=== PATIENT | female | born 2000 | race Asian ===

== ENCOUNTER 2022-08-11 16:19 | Observation (INO) ==
--- NOTE | 2022-08-11 16:22 | Emergency Department Note ---
Impression & Plan Intentional acetaminophen overdose, Major depressive disorder, Hypokalemia, Suicide attempt by acetaminophen overdose, Alcohol use ED Provider Note NAME: REMY WESTBROOK AGE: 21 SEX: F : 2000 ARRIVES VIA: Ambulance INFORMANT: Patient, ED PROVIDER(S): Jason Solomon MD CHIEF COMPLAINT: Tylenol overdose MEDICAL DECISION MAKING: Patient presents due to concern for Tylenol overdose that occurred around 11 AM this morning. Blood work was obtained and IV was established and empiric Acetadote was ordered. I did speak with poison control who agreed with current plan of care. Patient is a normal white count H&H and platelet count. Kidney function unremarkable but does have hypokalemia. Patient's urinalysis negative. test negative. Tylenol level 177 with alcohol 101. Given the patient's elevated Tylenol patient is not medically cleared. I did speak the on-call hospitalist service, Ilsa Morataya PA-C the patient was admitted by Dr. Zapien. Critical Care: I have personally spent 47 minutes of critical care time in direct management of this patient. This includes bedside care, interpretation of diagnostic studies, and testing, discussion with consultants, patient, and family members, and other require inpatient management activities. This 47 minutes is in excess of all separately billable procedures. Prior /Outside records reviewed: none Differential diagnosis: Overdose, mood disorder, infection, hypoglycemia, electrolyte abnormalities, cardiac sources, intracerebral event, toxicologic, trauma, neurologic, as well as other pathologies. Diagnostics, as interpreted by me: ECG: Normal sinus rhythm, rate of 64, normal intervals normal axis no ST elevations. Cardiac monitoring: An order was placed for continuous cardiac monitoring. The monitor shows a rate of 67 with sinus rhythm. Patient was placed on pulse oximetry Medical decision rules: none Imaging studies: See below HPI: Patient presents due to concern for Tylenol overdose. The patient states that she woke up this morning around 11 and took 3500 mg tablets of Tylenol. The patient does admit to drinking Esvin's vodka. The patient does have a known history of depression. Patient is a [employer] student but is currently here over the summer. Her roommates are currently gone. Patient does feel safe at home. No access to guns or weapons. The patient does have a prior history of self-harm and suicide attempt via cutting when she was 19. Patient's last menstrual period was 2 weeks ago. Patient does complain of depressed mood and that the ingestion was an attempt to harm herself. No HI or AVH. Patient states that her sleep has not been great and her appetite has been poor. Patient does complain of mild nausea. Patient denies any tobacco or drug use. Patient denies taking anything that she was not to otherwise. PAST MEDICAL HISTORY: See Below PAST SURGICAL HISTORY: See Below SOCIAL HISTORY: See Below HOME MEDICATIONS: See Below ALLERGIES: See Below VITALS: See Below PHYSICAL EXAMINATION: GENERAL: Depressed mood, no apparent distress EYE EXAM: Normal conjunctiva. PERRL, no anisocoria and EOM's grossly intact w/o pain. NECK: Supple, no nuchal rigidity, no adenopathy, non-tender. No signs of meningismus. FROM of the neck with good chin to chest and neck extension. No str idor. LUNGS: Clear to auscultation. Normal chest wall mechanics. HEART: NSR, no MRG. ABDOMEN: Abdomen soft, non-tender, no masses, no rebound or guarding. BACK: No CVA TTP. SKIN: No rashes and no bruising. UPPER EXTREMITIES: Upper extremities are grossly normal. LOWER EXTREMITIES: Grossly normal, no edema. NEURO EXAM: A&O x3, cranial nerves II-XII grossly intact, normal speech, moves all 4 extremities. Psych: Positive SI, negative HI or AVH. Past Med/Surg History Medical History Allergic rhinitis Major depressive disorder Surgical History No pertinent past surgical history Social History Smoking Status: Never smoker Hx Alcohol Use: Yes Hx Substance Use: No Preferred Language: Yakut current occupational status: student current occupation: [employer] student Results & Data (ED) Vital Signs Vital Signs - 24 hr 08/11/22 16:37 08/11/22 16:37 08/11/22 18:24 Temperature 36.7 C Temperature Source Oral Pulse Rate 73 Pulse Rate [Finger] 55 L Respiratory Rate 14 14 Blood Pressure 115/76 Blood Pressure [Left Arm] 109/77 Blood Pressure Mean 89 Blood Pressure Mean [Left Arm] 87 Pulse Oximetry 97 100 Oxygen Delivery Method Room Air Room Air Room Air Sepsis Recent Fever Within 48 Hours No Sepsis New/Unexplained Change in Mental Status No Sepsis Action Taken by Nursing No Action Required Home Medications Current Medication List: was personally reviewed by me Laboratory Data Attestation: I reviewed the patient's lab results. 08/11/22 16:42 08/11/22 16:42 Lab Results 08/11/22 08/11/22 08/11/22 Range/Units 16:28 16:28 16:28 WBC (4.8-10.8) K/ul RBC (4.20-5.40) M/uL Hgb (12.0-16.0) g/dl Hct (37.0-47.0) % MCV (80.0-100.0) fL MCH (25.0-34.0) pg MCHC (32.0-36.0) g/dL RDW Std Deviation (36.4-46.3) fL RDW Coeff of Pedro (11.5-14.5) % Plt Count (130-400) K/uL MPV (9.4-12.4) fL Immature Gran % (Auto) % Neut % (Auto) % Lymph % (Auto) % [place] % (Auto) % Eos % (Auto) % Baso % (Auto) % Neut # (Auto) (1.40-6.50) K/uL Lymph # (Auto) (1.2-3.4) K/uL [place] # (Auto) (0.11-0.59) K/uL Eos # (Auto) (0-0.50) K/uL Baso # (Auto) (0-0.2) K/uL Immature Gran # (Auto) (0.01-0.20) K/uL PT (9.0-12.0) Seconds INR (0.9-1.1) APTT (21.0-31.0) Seconds PTT Ratio Sodium (136-145) mmol/L Potassium (3.5-5.1) mmol/L Chloride (98-107) mmol/L Carbon Dioxide (21-32) mmol/L Anion Gap (3-11) BUN (6-23) mg/dl Creatinine (0.6-1.2) mg/dl Est Cr Clr Drug Dosing Est GFR ( Amer) ml/min Est GFR (Non-Af Amer) ml/min BUN/Creatinine Ratio (10-20) Glucose (70-99(Fasting)) mg/dl Calcium (8.6-10.3) mg/dl Total Bilirubin (0.2-1.0) mg/dl AST (13-39) U/L ALT (7-52) U/L Alkaline Phosphatase (34-104) U/L Total Protein (6.0-8.3) gm/dl Albumin (3.4-5.0) gm/dl Globulin (2.5-4.0) gm/dl Albumin/Globulin Ratio (0.9-2) TSH (0.300-4.500) uIu/ml Urine Color Yellow Urine Appearance Clear (Clear) Urine pH 7.0 (4.5-7.5) Ur Specific [place] 1.006 (1.000-1.030) Urine Protein Negative (Negative) Urine Glucose (UA) Negative (Negative) Urine Ketones Negative (Negative) Urine Blood Negative (Negative) Urine Nitrite Negative (Negative) Urine Bilirubin Negative (Negative) Urine Urobilinogen Negative (Negative) Ur Leukocyte Esterase Negative (Negative) Urine Test Negative (Negative) Salicylates (3.0-30) mg/dl Urine Opiates Screen Neg (Neg) Ur Methadone, Qual Neg (Neg) Acetaminophen (10-30) ug/ml Urine Barbiturates Neg (Neg) Ur Phencyclidine (PCP) Neg (Neg) U Amphetamin/Meth Scrn Neg (Neg) MDMA (Ecstasy) Screen Neg (Neg) U Benzodiazepines Scrn Neg (Neg) Ur Cocaine Metabolite Neg (Neg) U Marijuana (THC) Screen Neg (Neg) Ethyl Alcohol mg/dL (<10.0) mg/dl SARS-CoV-2, RNA, NAAT (NEGATIVE) 08/11/22 08/11/22 08/11/22 Range/Units 16:42 16:42 16:42 WBC 10.33 (4.8-10.8) K/ul RBC 4.79 (4.20-5.40) M/uL Hgb 14.0 (12.0-16.0) g/dl Hct 40.3 (37.0-47.0) % MCV 84.1 (80.0-100.0) fL MCH 29.2 (25.0-34.0) pg MCHC 34.7 (32.0-36.0) g/dL RDW Std Deviation 38.3 (36.4-46.3) fL RDW Coeff of Pedro 12.5 (11.5-14.5) % Plt Count 207 (130-400) K/uL MPV 11.4 (9.4-12.4) fL Immature Gran % (Auto) 0.5 % Neut % (Auto) 68.3 % Lymph % (Auto) 20.6 % [place] % (Auto) 6.6 % Eos % (Auto) 3.3 % Baso % (Auto) 0.7 % Neut # (Auto) 7.06 H (1.40-6.50) K/uL Lymph # (Auto) 2.13 (1.2-3.4) K/uL [place] # (Auto) 0.68 H (0.11-0.59) K/uL Eos # (Auto) 0.34 (0-0.50) K/uL Baso # (Auto) 0.07 (0-0.2) K/uL Immature Gran # (Auto) 0.05 (0.01-0.20) K/uL PT (9.0-12.0) Seconds INR (0.9-1.1) APTT (21.0-31.0) Seconds PTT Ratio Sodium 142 (136-145) mmol/L Potassium 3.4 L (3.5-5.1) mmol/L Chloride 110 H (98-107) mmol/L Carbon Dioxide 20 L (21-32) mmol/L Anion Gap 12 H (3-11) BUN 10 (6-23) mg/dl Creatinine 0.51 L (0.6-1.2) mg/dl Est Cr Clr Drug Dosing Not Reportable Est GFR ( Amer) > 150.0 ml/min Est GFR (Non-Af Amer) 137.5 ml/min BUN/Creatinine Ratio 19.6 (10-20) Glucose 101 H (70-99(Fasting)) mg/dl Calcium 9.0 (8.6-10.3) mg/dl Total Bilirubin 0.6 (0.2-1.0) mg/dl AST 21 (13-39) U/L ALT 14 (7-52) U/L Alkaline Phosphatase 68 (34-104) U/L Total Protein 7.4 (6.0-8.3) gm/dl Albumin 4.0 (3.4-5.0) gm/dl Globulin 3.4 (2.5-4.0) gm/dl Albumin/Globulin Ratio 1.2 (0.9-2) TSH 0.634 (0.300-4.500) uIu/ml Urine Color Urine Appearance (Clear) Urine pH (4.5-7.5) Ur Specific [place] (1.000-1.030) Urine Protein (Negative) Urine Glucose (UA) (Negative) Urine Ketones (Negative) Urine Blood (Negative) Urine Nitrite (Negative) Urine Bilirubin (Negative) Urine Urobilinogen (Negative) Ur Leukocyte Esterase (Negative) Urine Test (Negative) Salicylates (3.0-30) mg/dl Urine Opiates Screen (Neg) Ur Methadone, Qual (Neg) Acetaminophen (10-30) ug/ml Urine Barbiturates (Neg) Ur Phencyclidine (PCP) (Neg) U Amphetamin/Meth Scrn (Neg) MDMA (Ecstasy) Screen (Neg) U Benzodiazepines Scrn (Neg) Ur Cocaine Metabolite (Neg) U Marijuana (THC) Screen (Neg) Ethyl Alcohol mg/dL (<10.0) mg/dl SARS-CoV-2, RNA, NAAT (NEGATIVE) 08/11/22 08/11/22 08/11/22 Range/Units 16:42 16:42 16:42 WBC (4.8-10.8) K/ul RBC (4.20-5.40) M/uL Hgb (12.0-16.0) g/dl Hct (37.0-47.0) % MCV (80.0-100.0) fL MCH (25.0-34.0) pg MCHC (32.0-36.0) g/dL RDW Std Deviation (36.4-46.3) fL RDW Coeff of Pedro (11.5-14.5) % Plt Count (130-400) K/uL MPV (9.4-12.4) fL Immature Gran % (Auto) % Neut % (Auto) % Lymph % (Auto) % [place] % (Auto) % Eos % (Auto) % Baso % (Auto) % Neut # (Auto) (1.40-6.50) K/uL Lymph # (Auto) (1.2-3.4) K/uL [place] # (Auto) (0.11-0.59) K/uL Eos # (Auto) (0-0.50) K/uL Baso # (Auto) (0-0.2) K/uL Immature Gran # (Auto) (0.01-0.20) K/uL PT 11.7 (9.0-12.0) Seconds INR 1.1 (0.9-1.1) APTT 30.5 (21.0-31.0) Seconds PTT Ratio 1.1 Sodium (136-145) mmol/L Potassium (3.5-5.1) mmol/L Chloride (98-107) mmol/L Carbon Dioxide (21-32) mmol/L Anion Gap (3-11) BUN (6-23) mg/dl Creatinine (0.6-1.2) mg/dl Est Cr Clr Drug Dosing Est GFR ( Amer) ml/min Est GFR (Non-Af Amer) ml/min BUN/Creatinine Ratio (10-20) Glucose (70-99(Fasting)) mg/dl Calcium (8.6-10.3) mg/dl Total Bilirubin (0.2-1.0) mg/dl AST (13-39) U/L ALT (7-52) U/L Alkaline Phosphatase (34-104) U/L Total Protein (6.0-8.3) gm/dl Albumin (3.4-5.0) gm/dl Globulin (2.5-4.0) gm/dl Albumin/Globulin Ratio (0.9-2) TSH (0.300-4.500) uIu/ml Urine Color Urine Appearance (Clear) Urine pH (4.5-7.5) Ur Specific [place] (1.000-1.030) Urine Protein (Negative) Urine Glucose (UA) (Negative) Urine Ketones (Negative) Urine Blood (Negative) Urine Nitrite (Negative) Urine Bilirubin (Negative) Urine Urobilinogen (Negative) Ur Leukocyte Esterase (Negative) Urine Test (Negative) Salicylates < 3.0 L (3.0-30) mg/dl Urine Opiates Screen (Neg) Ur Methadone, Qual (Neg) Acetaminophen 177 H* (10-30) ug/ml Urine Barbiturates (Neg) Ur Phencyclidine (PCP) (Neg) U Amphetamin/Meth Scrn (Neg) MDMA (Ecstasy) Screen (Neg) U Benzodiazepines Scrn (Neg) Ur Cocaine Metabolite (Neg) U Marijuana (THC) Screen (Neg) Ethyl Alcohol mg/dL 101.7 H (<10.0) mg/dl SARS-CoV-2, RNA, NAAT (NEGATIVE) 08/11/22 Range/Units 17:46 WBC (4.8-10.8) K/ul RBC (4.20-5.40) M/uL Hgb (12.0-16.0) g/dl Hct (37.0-47.0) % MCV (80.0-100.0) fL MCH (25.0-34.0) pg MCHC (32.0-36.0) g/dL RDW Std Deviation (36.4-46.3) fL RDW Coeff of Pedro (11.5-14.5) % Plt Count (130-400) K/uL MPV (9.4-12.4) fL Immature Gran % (Auto) % Neut % (Auto) % Lymph % (Auto) % [place] % (Auto) % Eos % (Auto) % Baso % (Auto) % Neut # (Auto) (1.40-6.50) K/uL Lymph # (Auto) (1.2-3.4) K/uL [place] # (Auto) (0.11-0.59) K/uL Eos # (Auto) (0-0.50) K/uL Baso # (Auto) (0-0.2) K/uL Immature Gran # (Auto) (0.01-0.20) K/uL PT (9.0-12.0) Seconds INR (0.9-1.1) APTT (21.0-31.0) Seconds PTT Ratio Sodium (136-145) mmol/L Potassium (3.5-5.1) mmol/L Chloride (98-107) mmol/L Carbon Dioxide (21-32) mmol/L Anion Gap (3-11) BUN (6-23) mg/dl Creatinine (0.6-1.2) mg/dl Est Cr Clr Drug Dosing Est GFR ( Amer) ml/min Est GFR (Non-Af Amer) ml/min BUN/Creatinine Ratio (10-20) Glucose (70-99(Fasting)) mg/dl Calcium (8.6-10.3) mg/dl Total Bilirubin (0.2-1.0) mg/dl AST (13-39) U/L ALT (7-52) U/L Alkaline Phosphatase (34-104) U/L Total Protein (6.0-8.3) gm/dl Albumin (3.4-5.0) gm/dl Globulin (2.5-4.0) gm/dl Albumin/Globulin Ratio (0.9-2) TSH (0.300-4.500) uIu/ml Urine Color Urine Appearance (Clear) Urine pH (4.5-7.5) Ur Specific [place] (1.000-1.030) Urine Protein (Negative) Urine Glucose (UA) (Negative) Urine Ketones (Negative) Urine Blood (Negative) Urine Nitrite (Negative) Urine Bilirubin (Negative) Urine Urobilinogen (Negative) Ur Leukocyte Esterase (Negative) Urine Test (Negative) Salicylates (3.0-30) mg/dl Urine Opiates Screen (Neg) Ur Methadone, Qual (Neg) Acetaminophen (10-30) ug/ml Urine Barbiturates (Neg) Ur Phencyclidine (PCP) (Neg) U Amphetamin/Meth Scrn (Neg) MDMA (Ecstasy) Screen (Neg) U Benzodiazepines Scrn (Neg) Ur Cocaine Metabolite (Neg) U Marijuana (THC) Screen (Neg) Ethyl Alcohol mg/dL (<10.0) mg/dl SARS-CoV-2, RNA, NAAT NEGATIVE (NEGATIVE) Administered Medications Discontinued Medications Acetylcysteine 8,390 mg/ (Dextrose) 241.95 mls @ 200 mls/hr IV ONCE ONE; Protocol Stop: 08/11/22 18:13 Last Infusion: 08/11/22 18:51 Dose: 0 mls/hr Documented By: Admin: 08/11/22 17:38 Dose: 200 mls/hr Documented By: ANGIE Sodium Chloride (Nss 1000ml) 1,000 mls @ 999 mls/hr IV .Q1H1M ONE Stop: 08/11/22 19:11 Last Admin: 08/11/22 18:17 Dose: 999 mls/hr Documented By: ANGIE Ondansetron HCl (Ondansetron Inj 2 Mg/Ml 2 Ml Vial) 4 mg IV NOW STA Stop: 08/11/22 18:10 Last Admin: 08/11/22 18:16 Dose: 4 mg Documented By: ANGIE Ondansetron HCl (Ondansetron Inj 2 Mg/Ml 2 Ml Vial) Confirm Administered Dose 4 mg .ROUTE .STK-MED ONE Stop: 08/11/22 18:11 Last Admin: 08/11/22 18:16 Dose: Not Given Documented By: ANGIE Discharge Plan Visit Data Chief Complaint: Overdose (Intentional) Stated Complaint: OVERDOSE ED Provider: Jason Solomon Discharge Problem: Intentional acetaminophen overdose, Major depressive disorder, Hypokalemia, Suicide attempt by acetaminophen overdose, Alcohol use Patient Disposition: Admitted As Inpatient Discharge Instructions Interventions: ED Discharge Assessment Last Done: 08/11/22 19:10 Intentional acetaminophen overdose Qualifiers: Encounter type: initial encounter Qualified Code(s): T39.1X2A - Poisoning by 4- Aminophenol derivatives, intentional self-harm, initial encounter Major depressive disorder Qualifiers: Major depression recurrence: recurrent Major depression episode severity: severe Suicide attempt by acetaminophen overdose Qualifiers: Encounter type: initial encounter Qualified Code(s): T39.1X2A - Poisoning by 4- Aminophenol derivatives, intentional self-harm, initial encounter
[2022-08-11] MEDS ORDERED: ACETYLCYSTEINE IV ONE ×2 (17:01→23:06)
[2022-08-11] MEDS ORDERED: DEXTROSE 5% IV ONE ×2 (17:01→23:06)
[2022-08-11 17:02] LABS: Appearance Urine Clear (Clear); Bilirubin Urine Negative (Negative); Blood Urine Negative (Negative); Color Urine Yellow; Glucose Urine UA Negative (Negative); Ketones Urine Negative (Negative); Leukocyte Esterase Urine Negative (Negative); Nitrite Urine Negative (Negative); Pregnancy Test, Urine Negative (Negative); Protein Urine Negative (Negative); Specific Gravity Urine 1.006 (1.000-1.030); Urobilinogen Urine Negative (Negative)
[2022-08-11 17:04] LABS: Basophils # (auto) 0.07 K/uL (0-0.2); Basophils % (auto) 0.7 %; Eosinophils # (auto) 0.34 K/uL (0-0.50); Eosinophils % (auto) 3.3 %; Hematocrit (blood only) 40.3 % (37.0-47.0); Immature Granulocytes # (auto) 0.05 K/uL (0.01-0.20); Immature Granulocytes % (auto) 0.5 %; Lymphocytes # (auto) 2.13 K/uL (1.2-3.4); Lymphocytes % (auto) 20.6 %; Mean Corpuscular Hemoglobin 29.2 pg (25.0-34.0); Mean Corpuscular Hgb Conc 34.7 g/dL (32.0-36.0); Mean Corpuscular Volume 84.1 fL (80.0-100.0); Mean Platelet Volume 11.4 fL (9.4-12.4); Monocytes # (auto) 0.68 K/uL (0.11-0.59); Monocytes % (auto) 6.6 %; Neutrophils # (auto) 7.06 K/uL (1.40-6.50); Neutrophils % (auto) 68.3 %; Platelet Count 207 K/uL (130-400); RDW Coefficient of Variation 12.5 % (11.5-14.5); RDW Standard Deviation 38.3 fL (36.4-46.3); Red Blood Count 4.79 M/uL (4.20-5.40); White Blood Count 10.33 K/ul (4.8-10.8)
[2022-08-11 17:31] LABS: Anion Gap 12 (3-11); Bilirubin,Total 0.6 mg/dl (0.2-1.0); Carbon Dioxide 20 mmol/L (21-32); Chloride 110 mmol/L (98-107); Potassium 3.4 mmol/L (3.5-5.1); Sodium 142 mmol/L (136-145)
[2022-08-11 17:37] LABS: Alanine Aminotransferase 14 U/L (7-52); Albumin Globulin Ratio 1.2 (0.9-2); Alkaline Phosphatase 68 U/L (34-104); Aspartate Aminotransferase 21 U/L (13-39); BUN Creatinine Ratio 19.6 (10-20); Blood Urea Nitrogen 10 mg/dl (6-23); Est GFR (African American) > 150.0 ml/min; Est GFR (Non-African American) 137.5 ml/min; Globulin 3.4 gm/dl (2.5-4.0); Glucose 101 mg/dl (70-99(Fasting)); Total Protein 7.4 gm/dl (6.0-8.3)
[2022-08-11 17:39] LABS: Amphetamines+Metham, Urine Neg (Neg); Barbiturates, Urine Neg (Neg); Benzodiazepine, Urine Neg (Neg); Cocaine, Urine Neg (Neg); MDMA (Ecstacy), Urine Neg (Neg); Methadone, Urine Neg (Neg); Opiate, Urine Neg (Neg); Phencyclidine, Urine Neg (Neg)
[2022-08-11 17:48] LABS: INR 1.1 (0.9-1.1); Partial Thromboplastin Ratio 1.1; Partial Thromboplastin Time 30.5 Seconds (21.0-31.0); Prothrombin Time 11.7 Seconds (9.0-12.0)
[2022-08-11 17:49] LABS: Acetaminophen 177 ug/ml (10-30); Salicylate < 3.0 mg/dl (3.0-30)
[2022-08-11] MEDS ORDERED: ONDANSETRON INJ 2 MG/ML 2 ML VIAL IV STA (18:09)
[2022-08-11] MEDS ORDERED: ONDANSETRON INJ 2 MG/ML 2 ML VIAL ONE (18:10)
[2022-08-11] MEDS ORDERED: SODIUM CHLORIDE 0.9% 1000ML 1,000 ML IV ONE (18:11)
[2022-08-11] MEDS ORDERED: POTASSIUM CHLORIDE CRTAB 20 MEQ TABCR PO STA (18:55)
[2022-08-11] MEDS ORDERED: ONDANSETRON INJ 2 MG/ML 2 ML VIAL IV PRN (18:55)
--- NOTE | 2022-08-11 19:02 | History & Physical Report ---
Date of Service August 11, 2022 Assessment & Plan (1) Intentional acetaminophen overdose: Plan: Acute/unstable with active n/v - HIGH risk - Obs to pcu - Regular diet, safe tray - Reviewed CMP, AST/ALT reviewed and within normal limits - Acetadote bolus given by ED, d/w poison control, will initiate 4 hr bag (2.8g) followed by 16 hr bag (5.6g) - Repeat labs (specifically LFTs and PT/INR) 12 hrs into 16 hr bag = 11 AM on 08/12 - Zofran PRN n/v, despite dose in ED, still vomiting, will order a dose of Compazine 10mg IV x1 now - Continue IVF - 1:1/suicide precautions - Consult psychiatry, appreciate assistance (2) Major depressive disorder: Plan: Acute on chronic/unstable - Currently rx'd Lexapro 20mg daily which she is compliant with - Does not feel that this is effectively treating her depression and does not have access to counseling d/t lack of insurance - Consult psych as above - Also consult CM to assist pt with referrals for financial assistance ?possibly available through the [facility] ? (3) Allergic rhinitis: Plan: Chronic/stable - Uses Claritin PRN - Per pt did not OD on this (4) Hypokalemia: Plan: Acute/unstable - Reviewed CMP, potassium 3.4 - Replace with KCl 40meq po x1 now - Trend with repeat labs in AM Plan No need for VTE ppx as pt is low risk. Can ambulate in room. 302 petition is pending. Above plan of care has been d/w Dr. Zapien who will also see and evaluate this patient. Further orders will be implemented as warranted. 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 She reports that she consumed around 30 - 500mg rapid dissolving Tylenol tablets this AM around 11. She also was consuming "a lot" of alcohol (titos vodka). She started with a handle of vodka and is unable to relate how much was left when EMS was summoned after she was texting a friend that she was going to OD on Tylenol. She has a prior h/o suicide attempt at age 19. The friend's mother called 911 and she was transferred to the ER where she has been petitioned for a 302. She reports that she is currently taking Lexapro 20mg daily for the past year to control her depression which she states that she feels hasn't been working. She had some "left over from when she had insurance." She states that she hasn't been able to see a counselor due to lack of insurance. She reports increased stress recently but doesn't want to discuss details, but states that she had issues dating back to childhood. She states that she makes too much money for medicaid but not enough to afford private insurance. Currently only symptoms include nausea and vomiting. She was medicated with a dose of Zofran at the time of my assessment. Denies dyspnea, chest pain, fever, chills, abdominal pain, or gu symptoms. She is agreeable to stay but is concerned about the cost that she will incur as a result. She has been referred to the hospitalists for admission until she is deemed medically clear and can be transitioned to the unit. Allergies Allergy/AdvReac Type Severity Reaction Status Date / Time pollen extracts Allergy Sneezing Unverified 08/11/22 20:29 Past Med/Surg History Medical History Allergic rhinitis Major depressive disorder Surgical History No pertinent past surgical history Social History Smoking Status: Current some day smoker Tobacco Cessation Education Requested by Patient: No Hx Alcohol Use: Yes Alcohol type: hard liquor Hx Substance Use: No Preferred Language: Wallisian Communication Ability: Effective [employer] Supervisor Required: No Beliefs That Will Affect Care: None Current Living Situation: Other Current Living Situation Comment: lives with roommate at [facility] current occupational status: student 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 AAOx4. NAD. LUNGS: Clear to auscultation bilaterally. No W/R/R. CARDIOVASCULAR: Regular rate and rhythm. No M/G/R. ABDOMEN: Soft, non-tender and non-distended. Bs normoactive x 4 quad. EXTREMITIES: No edema. Non-tender. Peripheral pulses +2/4. PSYCH: Depressed mood with flat affect. Results & Data Results & Data Vital Signs (Past 12 Hours) Vital Signs Temp Pulse Pulse Resp BP BP Pulse Ox 08/11/22 18:24 55 L 14 109/77 100 08/11/22 16:37 08/11/22 16:37 36.7 C 73 14 115/76 97 O2 Del Method 08/11/22 18:24 Room Air 08/11/22 16:37 Room Air 08/11/22 16:37 Room Air Laboratory Results 08/11/22 16:42 08/11/22 16:42 Supervising Physician Co-Signing Physician Notes I personally saw and examined the patient. I verified all cervantes points and agree with Ilsa Morataya PA-C with the following exceptions and/or additions: 21 year old female admission after intentional acetaminophen overdose. Only symptom of N&V with this. Now under control and refused Compazine in ER. O/E A&Ox3, HS RRR, no murmurs, Chest CTAB, Abdo SNT, no pedal edema A/P Acetaminophen overdose - NAC started. Poison control contacted and recommended next labs at 11am tomorrow. Intentional overdose - consult psychiatry, one to one, safe tray Alcohol intoxication - Symptomatic management with IV fluids only. PG Care Time/CCT Total # of Minutes Spent Total Time Spent with Patient: Total time spent is greater than 50% in coordination of care (as documented) at patient's floor/unit and/or counseling patient: Coding Level of Care Code 01238 INT INP/OBS CARE 3/75MIN Diagnoses Intentional acetaminophen overdose T39.1X2A Major depressive disorder F32.9 Allergic rhinitis J30.9 Hypokalemia E87.6
[2022-08-11] MEDS ORDERED: SODIUM CHLORIDE 0.9% 1000ML 1,000 ML IV SCH (19:15)
[2022-08-11] MEDS: PROCHLORPERAZINE 10 MG in SYRINGE 8 ML IV ONE ×2 (20:05→20:08)
[2022-08-11] MEDS: LACTATED RINGER'S 1,000 ML IV SCH (20:07)
[2022-08-11] MEDS: Patient's ALLERGY Info needs ENTERED SCH ×4 (20:14→21:26)
[2022-08-12] MEDS: LACTATED RINGER'S 1,000 ML IV SCH ×2 (04:06→11:20)
--- NOTE | 2022-08-12 08:04 | Hospitalist Progress Note ---
Date of Service August 12, 2022 Assessment & Plan (1) Intentional acetaminophen overdose: Plan: Pt is a 21 yo female with PMH of depression and allergic rhinitis presenting after an intentional tylenol overdose. Intentional acetaminophen overdose - per pt, no hx of OD/SA (however, documented as prior SA at age 19 by cutting) - acetaminophen level upon admission 177, repeat <3 - drug screen neg, ethyl alcohol 101 upon admission - LFTs normal, PT/INR normal - s/p 21hr acetylcysteine - continue suicide precautions; safe tray, 1:1 - consult psychiatry; [address]- needs further safety planning and discussion about inpatient vs. outpatient psych tx prior to discharge Major depressive disorder - chronic, uncontrolled - per pt, takes lexapro 20mg daily at home; however, she has not seen a doctor in ~1 year because she does not have insurance - consult psych as above - consult CM to assist pt with possible referrals for financial assistance Hypokalemia - potassium 3.4, repleted - repeat WNL - continue to monitor Diet: regular, safe tray Code: full DVT ppx: low risk, able to ambulate in room Dispo: PCU/tele; 302, pending ?inpatient psych (2) Hypokalemia: (3) Alcohol use: (4) Major depressive disorder: Admission and Anticipated Discharge Date Admission Date: August 11, 2022 Supervising Physician Co-Signing Physician Notes I personally examined the patient and verified all cervantes points of history and exam, discussed case, and agree with decision making with Dr Duglas Rojas. Physically feeling okay. Friends visiting with her. She appears calm and is smiling some. Her friends appear quite supportive. Vitals noted, in general she is awake and alert pleasant no distress. HEENT normocephalic atraumatic mucous membranes moist. Breathing unlabored no accessory muscle use good effort. Skin shows no rashes no pallor or icterus. Neuro without focal deficits. Depression/suicidality with Tylenol overdosefortunately appearing quite stable. Continue N-acetylcysteine per poison control. Anticipate no long-term consequ ences from the overdose. Disposition planning and depression care per psychiatry (input greatly appreciated) Subjective Pt doing better this AM. No further nausea/vomiting. She states she wants to go home. Review of Systems Review of Systems: As per HPI Physical Exam Physical Exam: Constitutional: well appearing, no acute distress HEENT: normocephalic, no conjunctival injection CV: RRR, no murmur, no LE edema Respiratory: CTA bilaterally. No rhonchi, wheezes, or crackles. No increased work of breathing GI: soft, nondistended, nontender, + bowel sounds MSK: no gross deformities noted Skin: warm, dry, no rashes Neuro: alert, oriented, no FND noted Psych: mood and affect congruent. Denies current SI Results & Data Results & Data Vital Signs (Past 12 Hours) Vital Signs Temp Pulse Pulse Resp BP Pulse Ox O2 Del Method 08/12/22 07:34 99 H 08/12/22 07:14 36.5 C 77 18 138/90 96 Room Air 08/12/22 04:00 36.6 C 66 19 116/73 98 Room Air 08/12/22 00:00 36.5 C 61 18 121/77 98 Room Air 08/11/22 21:06 66 Resident Activity Tracking Resident Involvement: Resident Care Provided Care Provided: Adult Hospital Medicine (1) Intentional acetaminophen overdose Encounter type: initial encounter Qualified Code(s): T39.1X2A - Poisoning by 4-Aminophenol derivatives, intentional self-harm, initial encounter (4) Major depressive disorder Major depression episode severity: severe Major depression recurrence: recurrent
[2022-08-12 12:15] LABS: Basophils # (auto) 0.04 K/uL (0-0.2); Basophils % (auto) 0.5 %; Eosinophils # (auto) 0.19 K/uL (0-0.50); Eosinophils % (auto) 2.3 %; Hematocrit (blood only) 37.9 % (37.0-47.0); Hemoglobin 12.9 g/dl (12.0-16.0); Immature Granulocytes # (auto) 0.03 K/uL (0.01-0.20); Immature Granulocytes % (auto) 0.4 %; Lymphocytes # (auto) 1.74 K/uL (1.2-3.4); Lymphocytes % (auto) 21.2 %; Mean Corpuscular Hemoglobin 28.7 pg (25.0-34.0); Mean Corpuscular Volume 84.2 fL (80.0-100.0); Mean Platelet Volume 11.2 fL (9.4-12.4); Monocytes # (auto) 0.48 K/uL (0.11-0.59); Monocytes % (auto) 5.8 %; Neutrophils # (auto) 5.73 K/uL (1.40-6.50); Neutrophils % (auto) 69.8 %; Platelet Count 194 K/uL (130-400); RDW Coefficient of Variation 12.6 % (11.5-14.5); RDW Standard Deviation 38.4 fL (36.4-46.3); White Blood Count 8.21 K/ul (4.8-10.8)
[2022-08-12 12:46] LABS: INR 1.2 (0.9-1.1); Prothrombin Time 12.7 Seconds (9.0-12.0)
[2022-08-12 12:47] LABS: Alanine Aminotransferase 11 U/L (7-52); Albumin Globulin Ratio 1.2 (0.9-2); Albumin Level 3.7 gm/dl (3.4-5.0); Alkaline Phosphatase 58 U/L (34-104); Anion Gap 5 (3-11); Aspartate Aminotransferase 16 U/L (13-39); BUN Creatinine Ratio 5.3 (10-20); Bilirubin,Total 0.6 mg/dl (0.2-1.0); Blood Urea Nitrogen 3 mg/dl (6-23); Calcium 8.8 mg/dl (8.6-10.3); Carbon Dioxide 27 mmol/L (21-32); Chloride 106 mmol/L (98-107); Creatinine Clr Calc Pharmacy 137.8 ml/min; Est GFR (African American) > 150.0 ml/min; Est GFR (Non-African American) 132.5 ml/min; Glucose 126 mg/dl (70-99(Fasting)); Potassium 3.8 mmol/L (3.5-5.1); Sodium 138 mmol/L (136-145); Total Protein 6.7 gm/dl (6.0-8.3)
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
--- NOTE | 2022-08-12 17:14 | Billing Data ---
Date of Service August 12, 2022 Coding Level of Care Code 50782 SUB INP/OBS CARE MIN
--- NOTE | 2022-08-13 05:10 | Electrocardiogram Report ---
Test Reason : Blood Pressure : / mmHG Vent. Rate : 064 BPM Atrial Rate : 064 BPM P-R Int : 146 ms QRS Dur : 088 ms QT Int : 434 ms P-R-T Axes : 040 076 051 degrees QTc Int : 447 ms Normal sinus rhythm ST elevation, consider early repolarization No previous ECGs available Confirmed by Tim Santana ([id number]) on 08/13/2022 5:10:12 AM Referred By: REFERRED SELF Confirmed By:Tim Santana
[2022-08-13 06:51] LABS: Albumin Globulin Ratio 1.3 (0.9-2); Albumin Level 3.9 gm/dl (3.4-5.0); BUN Creatinine Ratio 12.5 (10-20); Bilirubin,Total 0.4 mg/dl (0.2-1.0); Calcium 9.1 mg/dl (8.6-10.3); Creatinine Clr Calc Pharmacy 125.1 ml/min; Est GFR (African American) 147.8 ml/min; Est GFR (Non-African American) 127.6 ml/min; Total Protein 6.9 gm/dl (6.0-8.3)
[2022-08-13 07:02] LABS: INR 1.1 (0.9-1.1); Prothrombin Time 11.9 Seconds (9.0-12.0)
--- NOTE | 2022-08-13 11:24 | Discharge Summary ---
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 She reports that she consumed around 30 - 500mg rapid dissolving Tylenol tablets this AM around 11. She also was consuming "a lot" of alcohol (titos vodka). She started with a handle of vodka and is unable to relate how much was left when EMS was summoned after she was texting a friend that she was going to OD on Tylenol. She has a prior h/o suicide attempt at age 19. The friend's mother called 911 and she was transferred to the ER where she has been petitioned for a 302. She reports that she is currently taking Lexapro 20mg daily for the past year to control her depression which she states that she feels hasn't been working. She had some "left over from when she had insurance." She states that she hasn't been able to see a counselor due to lack of insurance. She reports increased stress recently but doesn't want to discuss details, but states that she had issues dating back to childhood. She states that she makes too much money for medicaid but not enough to afford private insurance. Currently only symptoms include nausea and vomiting. She was medicated with a dose of Zofran at the time of my assessment. Denies dyspnea, chest pain, fever, chills, abdominal pain, or gu symptoms. She is agreeable to stay but is concerned about the cost that she will incur as a result. She has been referred to the hospitalists for admission until she is deemed medically clear and can be transitioned to the unit. Admission Exam Per Admitting Provider GENERAL: 21 yo well-developed, well-nourished F. AAOx4. NAD. LUNGS: Clear to auscultation bilaterally. No W/R/R. CARDIOVASCULAR: Regular rate and rhythm. No M/G/R. ABDOMEN: Soft, non-tender and non-distended. Bs normoactive x 4 quad. EXTREMITIES: No edema. Non-tender. Peripheral pulses +2/4. PSYCH: Depressed mood with flat affect. Principal Diagnosis intentional tylenol overdose Discharge Exam Constitutional: well appearing, no acute distress HEENT: normocephalic, no conjunctival injection CV: regular rhythm, no murmur, no LE edema Respiratory: Clear to auscultation bilaterally. No rhonchi, wheezes, or crackles. No increased work of breathing GI: soft, nondistended, positive bowel sounds MSK: no gross deformities noted Skin: warm, dry, no rashes Neuro: alert, oriented, no FND noted Discharge Data Allergies Allergy/AdvReac Type Severity Reaction Status Date / Time pollen extracts Allergy Sneezing Unverified 08/11/22 20:29 Consultations 08/11/22 18:12 ED Decision to Admit Stat 08/11/22 18:38 Consult Psychiatry Routine 08/11/22 20:44 Consult Behavioral Health Liaison Routine Hospital Course (1) Intentional acetaminophen overdose: Pt is a 21 yo female with PMH of depression and allergic rhinitis presenting after an intentional tylenol overdose. Intentional acetaminophen overdose - pt consumed ~30 500 mg pills - per pt, no hx of OD/SA (however, documented as prior SA at age 19 by cutting) - acetaminophen level upon admission 177, repeat <3 - drug screen neg, ethyl alcohol 101 upon admission - s/p 21hr acetylcysteine - LFTs and PT/INR normal throughout monitoring - suicide precautions; safe tray, 1:1 - psych recommended inpatient for further tx Major depressive disorder - chronic, uncontrolled - per pt, takes lexapro 10mg daily at home; however, she has not seen a doctor in ~1 year because she does not have insurance - psych involved for further tx - CM involved for financial assistance Hypokalemia- resolved - potassium 3.4, repleted - repeat WNL Diet: regular, safe tray Code: full DVT ppx: low risk, able to ambulate in room Dispo: inpatient psych (2) Hypokalemia: (3) Alcohol use: (4) Major depressive disorder: Total Time Total Time Spent Total Time Spent (In Minutes): as per attending attestation Discharge Plan Discharge Items Patient Disposition: Transfer Behavioral Health Fac Reason For Visit: TYLENOL OD Discharge Diagnosis: intentional tylenol OD Activity: Per Instructions section Non-emergency contact: Primary Care Provider Call non-emergency contact if: you have any medication questions and your symptoms worsen Follow-up/Referrals: [facility] [Primary Care Provider] - Diet: Regular Addtl Attending Provider Instructions: You were admitted to the hospital for a tylenol overdose with the intent to end your life. You were treated with an antidote to tylenol called acetylcysteine. Labs relating to your liver were monitored. These showed no signs of liver damage. You will be involved with inpatient psychiatric care for further treatment. A discharge summary will be sent to your primary care physician to ensure cont inuity of care. Please bring this discharge summary with you to your next office appointment so that your provider can review it at that time. Medications: Your medication list has been reviewed and reconciled upon discharge to ensure accuracy and continuity of care. An updated list of all your medications is included with your hospital discharge paperwork. Please review this list closely and make note of any changes to your medications. - No changes were made to your medications. Follow up appointments: - Make a follow up appointment with your PCP within the next week. It is very important that you follow up with them shortly after discharge from the hospital. - Keep all of your follow up appointments as already scheduled. If you cannot make an appointment, notify your provider. CONTACT YOUR PRIMARY CARE PROVIDER if you experience any of the following: - Difficulty following your treatment plan - Difficulty taking any of your medications CALL 911 OR GO TO THE EMERGENCY DEPARTMENT if you experience any of the following: - Sudden, severe abdominal pain or nausea/vomiting - Severe chest pain or chest pain that radiates to your jaw or arm - Sudden, severe shortness of breath or difficulty breathing Pending Studies at Discharge: No Stand-Alone Forms: My [facility] Medications and DC Order Prescriptions: Continued escitalopram oxalate 10 mg Tablet 10 mg PO DAILY Discharge Orders: Discharge Order (Routine); Ordered 08/13/22 Ordered By: Kalpana Alanis/Other Patient Handouts: ED Overdose Intentional Adult Admission Data Admit Date/Time: 08/11/22 18:38 Attending Provider: Mahamed Cast Admit Provider: Brian Zapien Primary Care Provider: [facility] Other Providers: Jael Henriquez ; Daniella Max ; Peng Nix ; Brian Zapien Supervising Physician Co-Signing Physician Notes I personally examined the patient and verified all cervantes points of history and exam, discussed case, and agree with decision making with Dr Martinez. friends present, feeling OK. for inpatient psych Vitals noted, in general she is awake and alert pleasant no distress. HEENT normocephalic atraumatic mucous membranes moist. Breathing unlabored no accessory muscle use good effort. Skin shows no rashes no pallor or icterus. Neuro without focal deficits. Depression/suicidality with Tylenol overdosefortunately appearing quite stable. treated with N-acetylcysteine per poison control. Anticipate no long-term consequences from the overdose. Disposition planning and depression care per psychiatry (going to inpt psych today) Resident Activity Tracking Resident Involvement: Resident Care Provided Care Provided: Adult Hospital Medicine
--- NOTE | 2022-08-13 15:54 | Billing Data ---
Date of Service August 13, 2022 Coding Level of Care Code 24675 IN/OBS DISCH 30 MIN/LESS
== END 2022-08-13 13:42 ==
LOC: ED 16:19 → EDINP 18:38 → INTOOBSV 18:38 → SUATTDRO 18:38 → EDINP 19:10 → 2S 20:06

== ENCOUNTER 2022-08-13 11:01 | Inpatient (IN) ==
[2022-08-13] MEDS ORDERED: ALUMINUM/MAGNESIUM SUSP 30 ML UDC PO PRN (11:24)
[2022-08-13] MEDS ORDERED: ACETAMINOPHEN 325 MG TAB PO PRN (11:24)
[2022-08-13] MEDS ORDERED: MAGNESIUM HYDROXIDE SUSP 30 ML UDC PO PRN (11:24)
[2022-08-13] MEDS ORDERED: BISMUTH SUBSALICYLATE LIQD 236 ML PO PRN (11:24)
[2022-08-13] MEDS ORDERED: hydrOXYzine HCl 25 MG TAB PO PRN ×2 (11:24)
[2022-08-13] MEDS ORDERED: SODIUM CHLORIDE 0.65% NA SOLN 45 ML (OCEAN) PRN (11:24)
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
[2022-08-14] MEDS: ESCITALOPRAM OXALATE 20 MG TAB PO SCH (10:55)
--- NOTE | 2022-08-15 08:42 | Psychiatric Progress Note ---
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 Diagnostically consistent with major depressive disorder with anxious distress, and certainly trauma/PTSD component though not currently meeting full PTSD criteria. Also with possible alcohol-induced component. The patient is deemed unstable and requires psychiatric hospitalization for diagnostic clarification, safety and stabilization, medication management and development of further coping skills. Signed a 72 hour notice that expires on 08/16/2022 at 1830. 08/15/2022: More hopeful and engaging in treatment. Sleeping well. Tolerating higher dose of escitalopram. Agrees to having a support meeting tomorrow to help with outpatient safety planning and increasing support resources. (1) Major depressive disorder, recurrent severe without psychotic features: (2) Suicide attempt by acetaminophen overdose: (3) HUY (generalized anxiety disorder): (4) Alcohol use: Plan 08/15/2022: Continue current medications and tx plan. 08/14/2022: The patient was admitted to the [facility] ([facility] mental [facility]) on q15 min checks (behavioral with suicide precautions) for safety. The patient will participate in group, recreational, and milieu therapies and will be offered additional individual and family sessions as clinically appropriate. -Increase escitalopram to 20mg daily Inventory Assets Strengths: supportive relationships, willing to get treatment Needs: safety and stabilization, medication adjustment, additional coping skills, increased outpatient services Suicide Risk Level Suicide Risk Level: Moderate (q15 min suicide checks) (serious suicide attempt prior to admission but now mood improving, denies SI, feels safe in the hospital, able to safety contract and agrees to let nursing/staff know should they develop plan, intent or feel unable to remain safe. 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 Chief Complaint "I'm feeling anxious". Review of Systems Sleep Information Total Hours of Sleep: 7.5 Meal Information Percent Meal Consumed - Breakfast: 25 Percent Meal Consumed - Lunch: 50 Percent Meal Consumed - Dinner: 50 Subjective Subjective Patient was seen & assessed and interval progress reviewed with treatment team nursing and social work. Attending groups, opening up more. Feeling more hopeful. Interacting with her peers. Slept well overnight. Anxiety today related to not knowing where her jewelry is, she recalls having it in the ED and needing to remove it but notes it wasn't listed on her items when she was admitted to the inpatient psychiatry unit on her belongings sheet. She denies SI. Denies any side effects from higher dose of escitalopram, thinks it is starting to help improve her mood. Physical Exam Psychiatric Orientation: alert and oriented x 3 Apperance: appropriately dressed and appropriately groomed Eye Contact: good eye contact Motor Behavior: no abnormal motor movements Speech: normal rate/rhythm/volume of speech Affect: + anxious affect Mood: + anxious mood Thought Process: goal directed thought process Thought Content: reality based without delusions Suicidal Thoughts: denies suicidal thoughts (none but s/p attempt), denies suicidal plan and denies suicidal intent Homicidal Thoughts: denies homicidal thoughts Hallucinations: no auditory hallucinations and no visual hallucinations Cognition: recent memory grossly intact, remote memory grossly intact, attention grossly intact and language grossly intact Estimated Intelligence: consistent with education level Insight: + fair insight Judgment: + fair judgement Vital Signs (Past 24 Hours) Last Vital Signs Temp 36.7 C 08/15/22 06:00 Pulse 80 08/15/22 06:00 Resp 16 08/15/22 06:00 BP 120/80 08/15/22 06:49 Pulse Ox 99 08/15/22 06:00 O2 Del Method Room Air 08/15/22 06:00 Results & Data ([facility]) Current Inpatient Medications Current Inpatient Medications: Current Inpatient Medications Acetaminophen (Acetaminophen 325 Mg Tab) 650 mg PO Q4H PRN PRN Reason: Headache or Minor Fever Stop: 09/12/22 11:23 Al Hydrox/Mg Hydrox/Simethicone (Aluminum/Magnesium Susp 30 Ml Udc) 30 ml PO Q4H PRN PRN Reason: GI Upset Stop: 09/12/22 11:23 Bismuth Subsalicylate (Bismuth Subsalicylate Liqd 236 Ml) 15 ml PO PRN PRN PRN Reason: Loose Stool Stop: 09/12/22 11:23 Escitalopram Oxalate (Escitalopram Oxalate 20 Mg Tab) 20 mg PO QAM ANIRUDH Stop: 09/13/22 10:14 Last Admin: 08/14/22 10:55 Dose: 20 mg Hydroxyzine HCl (Hydroxyzine Hcl 25 Mg Tab) 50 mg PO HSZ PRN PRN Reason: Insomnia Stop: 09/12/22 11:23 Hydroxyzine HCl (Hydroxyzine Hcl 25 Mg Tab) 25 mg PO Q4H PRN PRN Reason: Anxiety Stop: 09/12/22 11:23 Magnesium Hydroxide (Magnesium Hydroxide Susp 30 Ml Udc) 30 ml PO DAILY PRN PRN Reason: Constipation Stop: 09/12/22 11:23 Sodium Chloride (Sodium Chloride 0.65% Na Soln 45 Ml ([place])) 1 - 2 sprays NA PRN PRN PRN Reason: Nasal Dryness/Congestion Stop: 09/12/22 11:23 (2) Suicide attempt by acetaminophen overdose Encounter type: initial encounter Qualified Code(s): T39.1X2A - Poisoning by 4-Aminophenol derivatives, intentional self-harm, initial encounter
[2022-08-15] MEDS: ESCITALOPRAM OXALATE 20 MG TAB PO SCH (08:58)
[2022-08-16] MEDS: ESCITALOPRAM OXALATE 20 MG TAB PO SCH (09:53)
--- NOTE | 2022-08-16 10:38 | Discharge Summary ---
Date of Service August 16, 2022 History of Present Illness Denise was brought to the hospital after ingesting acetaminophen, approximately 30 tabs of 500mg strength, in the context of drinking vodka as a suicide attempt. Apparently she texted a friend reporting her plan to from an overdose of Tylenol and EMS responded. She feels this was an impulsive attempt and she started taking the Tylenol before drinking alcohol. She reports worsened depression as well as loneliness, finances, academics, and her mother (trying to maintain healthy boundaries but this can lead to guilt) as recent stressors and precipitating factors to the overdose. She feels the pain she experiences is due to feeling alone and "not having the unconditional support of parents". With graduation weekend she witnessed a lot of her peers having the family support she wishes she had. She endorses depressive symptoms including, self-guilt, hopelessness, stable energy, decreased motivation, decreased concentration, increased sleep, stable appetite, negative thoughts about appearance and self-worth. She endorses anxiety symptoms including excessive worry but denies any history of panic attacks. She endorses PTSD symptoms including intrusive memories/flashbacks (typically once every few weeks), mood changes-anger, hypervigilance, has experienced nightmares in past of trauma but not to the point of night terrors with physical symptoms (typically occurs a few times per month). She has been taking an old prescription of escitalopram 10mg daily but doesn't feel this has been helping. No side effects. Psychiatric ROS notable for no current nor history of symptoms of dayana, psychosis, OCD self-harm, nor eating disorder. Physical Exam Vital Signs (Past 24 Hours) Last Vital Signs Temp 36.6 C 08/16/22 06:31 Pulse 71 08/16/22 06:32 Resp 16 08/16/22 06:31 BP 108/76 08/16/22 06:32 Pulse Ox 99 08/15/22 06:00 O2 Del Method Room Air 08/15/22 06:00 See admission H&P and DOD summary. Principal Diagnosis Major Depressive Disorder Psychiatric Data See daily stay summary. In short, patient was engaged with the social/therapeutic milieu of the unit, safety was maintained and the patient was cooperative with care. Medication changes included increase of escitalopram to 20mg daily and they tolerated this well. If depression symptoms worsen in the future would consider switching to an alternative SSRI versus augmentation with Wellbutrin XL. A support session was held and safety plan was completed prior to discharge. She actively and insightfully participated in safety planning and in discussions about ways to seek support and recognizing warning signs and util izing coping skills. Reviewed mobile apps that could be used for additional ways to have their safety plan and contacts easily available should thoughts of SI re-emerge in the future. Reviewed importance of seeking emergency care should SI intensify, worsen or should they feel unsafe in the future which they agree to do. On the day of discharge she stated her mood was "excited and content" and remained future-oriented including getting sunshine, having a good meal, hanging out with friends and engaging in aftercare appointments for therapy, [employer] student care and advocacy. Discussed her lost jewelry valuables and that the charge attendant will get her preferred contact number so that she can be reached after discharge for follow- up on this matter. She voiced understanding and appreciation for this. Reviewed that if she doesn't hear from anyone within the next few days she can always reach back out to the hospital to get an update which she agrees to do. Day of Discharge Assessment Today the patient voices readiness for discharge. They note improvement in mood and anxiety. They deny thoughts of harm to self or others. Thoughts are organized and they are clinically improved from admission. There is no evidence of psychosis. They improved in the hospital with support and medication adjustments. They agree to take medications as prescribed and keep follow-up appointments. At the time of the discharge they are deemed to be stable and appropriate for outpatient level of care. They are not deemed to be at imminent risk of harm to self or others. They are aware of emergency and crisis services. Knows to call 911 or go to nearest emergency care center if in a crisis which cannot be handled as an outpatient. Transition of Care Transition Of Care Record: was reviewed with the patient Advance Directives Advance Directives Information Provided: Yes Advance Directives: No Mental Health Advance Directive: No Advance Directives on File: No Living Will: No Power of Gas Maker Helper: No Advance Directives Reason:: Declines as Mental Health Visit. Suicide Risk Level Suicide Risk Level Comments: Acute risk is low given improvement in mood and denial of SI, lack of access to lethal means, plan to avoid substance use, improvement in sleep, hopefulness. Chronic risk is moderate given some non-modifiable risk factors:periods of impulsivity, prior attempt, childhood trauma but also with protective factors including: employed/student, good social support from friends, sense of responsibility to social supports, outpatient care in place, positive coping skills, positive problem solving, capacity to establish therapeutic alliance, willingness to engage with treatment, capacity for self-observation. Counseled on ways to reduce acute and chronic risk including engaging with outpatient providers, using safety plan if needed, utilizing supports, taking medication, and using coping skills. Modifiable risk factors of SI and depression were addressed during hospitalization through development of new coping skills, family meeting, safety planning, and medication adjustments. Risk Factors Assessment Male: No : No Do You Have Access To A Gun?: No Health Problems: No Mental Health Diagnoses: Yes Substance Use Disorders: No Previous Attempt: Yes Family History of Suicide: No Previous Psychiatric Hospitalization: No Hopelessness: No Protective Factors Assessment Employed: Yes Stable Relationships: Yes Supportive Family: No Hospital Course (1) Major depressive disorder, recurrent severe without psychotic features: (2) Suicide attempt by acetaminophen overdose: (3) HUY (generalized anxiety disorder): (4) Alcohol use: Plan 08/15/2022: Continue current medications and tx plan. 08/14/2022: The patient was admitted to the [facility] ([facility] inpatient mental health unit) on q15 min checks (behavioral with suicide precautions) for safety. The patient will participate in group, recreational, and milieu therapies and will be offered additional individual and family sessions as clinically appropriate. -Increase escitalopram to 20mg daily Mental Health & Subst Abuse Tx Psychiatrist Name of Psychiatrist: [facility] Psychiatrist's Psychiatric Appointment Comment: You will be referred for med management at your [facility] intake. Therapist Name of Therapist: [facility] Therapist's Date of Therapist Appointment: 08/17/22 Time of Therapist Appointment: 3:00 PM Therapy Appointment Comment: [facility], 5th Floor. Check email for paperwork. Director Agency & Strategic Partnerships Name of Director Agency & Strategic Partnerships: Student Care and Advocacy - Leida Puga Phone Number for Director Agency & Strategic Partnerships: [phone] Case Management Appointment Comment: [email or web address] Discharge Appointments Primary Care Physician Name Of Family Doctor/PCP: [facility] Primary Care Provider Appointment Comment: Please follow up if you are in need of PCP services. Contact Information Discharge Discharge Address: [address] [place] [id number] Discharge Plan Discharge Items Patient Disposition: Home - Self-Care Reason For Visit: MAJOR DEPRESSIVE DISORDER Discharge Diagnosis: Major Depressive Disorder Activity: Resume your previous activity Non-emergency contact: Primary Care Provider and Therapist Call non-emergency contact if: you have any medication questions and your symptoms worsen Follow-up/Referrals: [facility] [Primary Care Provider] - Diet: Regular Addtl Attending Provider Instructions: Optional mobile apps we discussed: -Suicide safety plan -Virtual Hope Box SPECIAL CARE INSTRUCTIONS: 1. Follow through with your scheduled aftercare appointments. If unable to keep an appointment, please call to reschedule. 2. Take your medication only as prescribed. Medication should not be changed or stopped without the approval of your doctor. In the event of worsening symptoms or concerns about side effects, contact your doctor immediately. 3. Utilize new healthy coping skills, anger management skills, and stress management skills learned during your hospitalization. Journal feelings and process them with a support person. Identify stressors or situations that may result in relapse, deterioration or inappropriate behaviors and develop a plan to deal with those issues. 4. If your coping skills are ineffective and you are in crisis, contact your outpatient providers for direction. If unable to reach your providers, please call the [facility] CRISIS LINE AT , go to the [facility] walk-in center at [address], [address], [place], or go to the closest Emergency Room. 5. Avoid alcohol and un-prescribed drugs. 6. You have been provided with the Mental Health Advance Directives Pamphlet for your review. 7. Your condition is stable for discharge to outpatient level of care, but recovery is an ongoing process. Ifthoughts to harm yourself or others return, follow the safety plan developed during your stay. Planning for a safe return home includes securing weapons. Our treatment team recommends weaponsbe removed from the home until your outpatient provider reassesses your progress. In rare cases where the items themselvescannot be removed, guns and ammunitionshould be secured separatelyand keys stored by a reliable personoutside of the home. If you were admitted on an involuntary commitment, the police or other legal authorities may be involved in this process. AFTERCARE APPOINTMENTS: * Please call your insurance company prior to your scheduled appointment to confirm your aftercare providers are covered. Take your insurance information to your appointments. WHO TO CALL AND WHEN: Medical Emergencies: For questions or emergencies related to your hospital stay, please contact the Inpatient Behavioral Health Unit at [phone]. A stroke program coordinator is on-call 25/10 for the Behavioral Health Unit for emergencies National Crisis Hotline: 185 At any time you feel your situation is an emergency, you may also call 911 immediately. Pending Studies at Discharge: No Stand-Alone Forms: My [facility] Medications and DC Order Prescriptions: New escitalopram oxalate 20 mg Tablet 20 mg PO QAM 30 Days Qty: 30 0RF Discontinued escitalopram oxalate 10 mg Tablet 10 mg PO DAILY Discharge Orders: Discharge Order (Routine); Ordered 08/16/22 Ordered By: Jael Henriquez Admission Data Admit Date/Time: 08/13/22 14:02 Attending Provider: Jael Henriquez Admit Provider: Peng Nix Primary Care Provider: [facility] Other Interventions: Discharge Summary Assessment (RN) Last Done: 08/16/22 11:11 PSY Interdisciplinary Discharge Planning Last Done: 08/16/22 11:12 Coding Level of Care Code 92430 D/C day mgmt > 30 min Diagnoses Major depressive disorder, recurrent severe without psychotic features F33.2 Suicide attempt by acetaminophen overdose T39.1X2A Encounter type: initial encounter HUY (generalized anxiety disorder) F41.1 Alcohol use Z78.9 Time Spent (min) 40
== END 2022-08-16 12:01 | disposition home or self-care (01) | DRG 885 ==
LOC: 3S 14:02 → SUATTDRO 14:02